=== PATIENT | female | born 2000 | race Caucasian/White ===

== ENCOUNTER 2020-04-16 10:53 | Inpatient (IN) | payer BC ==
[~2020-04-16] VITALS: Ht 165.1 cm; Wt 106.0 kg
[2020-05-05] VITALS (11 sets, daily range): BP systolic 121–153; BP diastolic 58–92; PULSE 74–102; TEMP 98.1–98.9
--- NOTE | 2020-05-05 05:45 | NUR ---
The patient ambulated back to [facility] independently using a steady gait and appeared to tolerate the activity well. Vital signs obtained. Consent signed. 18G IV started in left hand with one stick, LR infusing without difficulty. Heart Reg. Lungs clear. Bowel sounds audible. Call light is within reach. The patient denies any further needs at this time. Will continue to monitor the patient.
--- NOTE | 2020-05-05 11:35 | NUR ---
PATIENT ADMITED INTO ROOM 322-2 POST OP LEFT ROBOTIC NEPHRECTOMY. ABD LAP SITES X6 ARE CD&I WITH GLUED CLOSURE. ABD IS DISTENDED, SOFT AND WITH POSITIVE BOWL SOUNDS. NO C/O N/V. IV FLUIDS INFUSING INTO LEFT HAND IV VIA PUMP. PATIENT INSTRUCTED ON NO STRAWS OR CARBINATION. NERI TO DD WITH SMALL AMOUNTS OF CLEAR YELLOW URINE NOTED. HEAD TO TOE ASSESSMENT COMPLETE. PATIENT SLEEPING WITH CALL LIGHT IN REACH.
--- NOTE | 2020-05-05 14:35 | NUR ---
PATIENT STILL VERY DROWSY. SLEEPING IN ROOM WITH FAMILY AT BEDSIDE.
--- NOTE | 2020-05-05 16:00 | NUR ---
PATIENT NOW AWAKE. VSS. NO C/O PAIN AT REST. GAVE SCHEDULED TYLENOL & NEURONTIN. PATIENT ASKING FOR A POPSICLE. NO C/O N/V.
[2020-05-06] VITALS: BP 136/65; PULSE 85; TEMP 98.7
[2020-05-06 04:00] VITALS: BP 112/61; PULSE 79; TEMP 98.1
[2020-05-06 07:52] LABS: HEMOGLOBIN 11.3 g/dl (12.5-16.0)
[2020-05-06 07:53] LABS: HEMATOCRIT 34.4 % (37.0-47.0)
[2020-05-06 08:02] VITALS: BP 123/77; PULSE 84; TEMP 99
[2020-05-06 08:05] LABS: CALCIUM 8.9 mg/dL (8.4-10.2); POTASSIUM 3.8 mmol/L (3.4-5.0)
--- NOTE | 2020-05-06 09:43 | NUR ---
Patient resting in bed. She sat up breifly in chair, but pain became unbearable. Patient up to the bathroom & was able to void after dalal removal & position in bed more comfortably. Patient was medication with Tramadol for pain & given crakers with the medication. She denies nausea. Report passing flatus & bowel audible. Incision sites edges well approximated & open to air. Patietn refuses SCds at this time. Iv to Int when current bag finished. Patient supportive mother at bedside, will continue to encourage actiivty today.
--- NOTE | 2020-05-06 10:09 | NUR ---
Initial visit; Patient and her mother thanked Supply Chain Logistics Manager for looking in on Anneliese and offering God's blessings and keeping her in Supply Chain Logistics Manager's prayers.
--- NOTE | 2020-05-06 10:33 | NUR ---
Patient feeling better, not yet ready to take a walk. Will monitor.
--- NOTE | 2020-05-06 11:33 | NUR ---
Patient ambulated halls and did great. Patient ready for lunch, will monitor.
[2020-05-06 12:25] VITALS: BP 132/70; PULSE 86; TEMP 98.6
--- NOTE | 2020-05-06 16:51 | NUR ---
Patient ready for discharge. notified. Patient wheeled out with all belongings. All discharge instructions reviewed. All questions answered. We reviewed activity & diet restrictions. Incision care & when to call the doctor reviewed. Patient aware of follow up appt. Patient mother taking her home
== END 2020-05-06 17:00 | disposition home or self-care (01) | DRG 658 ==
LOC: INPTSU 05-05 05:14 → SURG 05-05 07:30
PROVIDERS: ADMIT Urology
PROC: 8E0W4CZ Robotic Assisted Procedure of Trunk Region, Percutaneous Endoscopic Approach (ICD-10-PCS; 2020-05-05)
PROC: 0TT14ZZ Resection of Left Kidney, Percutaneous Endoscopic Approach (ICD-10-PCS; principal; 2020-05-05 07:30)
DX: D30.02 Benign neoplasm of left kidney (principal)
CPT/HCPCS: A4314; A9284; J0171; J0690; J1100; J1170; J2250; J2405; J2704; J3010; J7120